=== PATIENT | male | born 1955 | race Caucasian/White ===

== ENCOUNTER 2019-06-07 09:07 | Day surgery (SDC) | payer MEDICARE, BC ==
[~2019-06-07] VITALS: Ht 177.8 cm; Wt 103.9 kg
[~2019-06-07 09:07] MED LIST: COZAAR50 MG PO; FENOFIBRATE160 MG PO; FISH OIL 1,0001 EAC6 PO; IBUPROFEN600 MG PO; LOVASTATIN20 MG PO; PERCOCET 5-3251 EACH PO; PERCOCET 7.5-31 EACH PO; PRILOSEC20 MG PO; ROBAXIN500 MG PO
--- NOTE | 2019-06-07 10:53 | NUR ---
06/07/19 [facility] [address]-PT ARRIVES TO PACU ON 3 L VIA MASK. PT NONAROUSABLE. VSS.
--- NOTE | 2019-06-08 06:14 | OR ---
[facility] [address], [place] [address] Signed DATE OF OPERATION: 06/07/2019 SURGEON: Gavi Campos MD PREOPERATIVE DIAGNOSIS: Screening. POSTOPERATIVE DIAGNOSIS: Minimal internal hemorrhoids. PROCEDURE: Colonoscopy without biopsy. ESTIMATED BLOOD LOSS: None. INDICATIONS: Doug is a 64-year-old gentleman, who returns for a followup screening colonoscopy. He had an unremarkable colonoscopy back in 2007. Currently, he has no lower GI complaints. There is no family history of colon cancer or polyps. I met with Doug in the office and I gave him a pamphlet on colonoscopy. He understands the nature of the test along with its risks including, but not limited to gas bloating, crampy abdominal pain, bleeding, perforation requiring surgery, and missed diagnosis. He also understands the need for IV conscious sedation. He had expressed understanding and wished to proceed. PROCEDURE NOTE: Doug was taken into our endoscopy suite and placed in the left lateral decubitus position. He was maintained on IV sedation with 7 mg of Versed and 150 mcg of fentanyl. A digital rectal exam was performed and this was unremarkable. The adult colonoscope was introduced and advanced all around into the cecum under direct visualization of camera. It took some extra sedation, abdominal compression in order to get through the hepatic flexure and then down into the cecum itself. We could easily see the appendiceal orifice and the ileocecal valve. The scope was slowly withdrawn. His prep was moderate. We saw no pathology throughout the entire colon or rectum. Upon retroflexion of scope, he has very minimal internal hemorrhoid tissue. After this, the gas was suctioned out and the colonoscope removed. Doug tolerated procedure quite well. RECOMMENDATIONS: Doug can follow up in 10 years for repeat colonoscopy. Electronically Signed By: GAVI CAMPOS MD 06/08/19 0614 PATIENT NAME: DOUG FERRIS OPERATIVE REPORT DATE OF : 53 REPORT #: [id number] PHYSICIAN: GAVI CAMPOS MD PCP: SOULEYMANE RAY PA-C REPORT IS CONFIDENTIAL AND NOT TO BE RELEASED WITHOUT AUTHORIZATION [address] [address] Signed MD JOBY Hubbard/ERICKSONL /[id number] cc: ROBERTO Mclaughlin MD Copies: GAIV CAMPOS MD ~ Electronically Signed By: GAVI CAMPOS MD 06/08/19 0614 PATIENT NAME: DOUG FERRIS OPERATIVE REPORT DATE OF : 53 REPORT #: [id number] PHYSICIAN: GAVI CAMPOS MD PCP: SOULEYMANE RAY PA-C REPORT IS CONFIDENTIAL AND NOT TO BE RELEASED WITHOUT AUTHORIZATION
== END 2019-06-07 11:45 | disposition home or self-care (01) ==
LOC: OPS 09:07 → DS 10:30 → OPS 11:45
PROVIDERS: Colon & Rectal Surgery
PROC: 0DJD8ZZ Inspection of Lower Intestinal Tract, Via Natural or Artificial Opening Endoscopic (ICD-10-PCS; principal; 2019-06-07 10:30)
DX: Z12.11 Encounter for screening for malignant neoplasm of colon (principal); K64.8 Other hemorrhoids; I10 Essential (primary) hypertension; E78.5 Hyperlipidemia, unspecified; G25.81 Restless legs syndrome; M47.816 Spondylosis without myelopathy or radiculopathy, lumbar region; Z79.899 Other long term (current) drug therapy; Z98.890 Other specified postprocedural states
CPT/HCPCS: 99153; G0500; J2250; J3010; J7121